=== PATIENT | female | born 1970 | race Caucasian/White ===

== ENCOUNTER → 2018-01-07 | Outpatient (CLI) | payer OTHER ==
[~2018-01-07] MED LIST: GADAVIST IV PRN
--- NOTE | 2018-01-07 09:38 | DIAGNOSTIC IMAGING REPORT ---
THORACIC SPINE COMBO CLINICAL HISTORY: 47 years-old Female presenting with G93.5 Chiari malformation, left arm numbness radiating to the fingers, concern for syrinx. TECHNIQUE: Multisequence, multiplanar MR imaging of the thoracic spine was performed before and after the administration of intravenous contrast. IV contrast: 7 mL of Gadavist. COMPARISON: None. FINDINGS: Localizer images: Unremarkable. Normal thoracic kyphosis. Slight levocurvature of the thoracic spine. Vertebral bodies maintain normal height, alignment, and bone marrow signal intensity. Intervertebral disc spaces preserved. No neural foraminal or spinal canal narrowing. The thoracic spinal cord maintains normal morphology and signal intensity. No kinking of the spinal cord or apparent displacement anteriorly or posteriorly. No evidence of a syrinx. No abnormal enhancements on postcontrast imaging. Normal appearance of the proximal cauda equina. Paraspinal soft tissues within normal limits. IMPRESSION: Essentially normal thoracic spine and thoracic spinal cord. No evidence of syrinx. No neural foraminal or spinal canal narrowing. Electronically signed by: Aguila Torres M.D. 01/07/2018 9:37 AM Dictated Date/Time: 01/07/2018 9:32 AM
--- NOTE | 2018-01-07 10:39 | DIAGNOSTIC IMAGING REPORT ---
MRI OF THE CERVICAL SPINE COMBO CLINICAL HISTORY: Chiari malformation. Left upper extremity numbness. COMPARISON STUDY: No priors. TECHNIQUE: MRI of the cervical spine is performed utilizing various T1 and T2 weighted sequences in the axial and sagittal planes. Contrast-enhanced sequences are acquired following the IV administration of 7 cc of Gadavist. FINDINGS: Cervical spine: Vertebral body height and alignment are maintained throughout the cervical spine. There is straightening of the cervical lordosis with mild reversal centered at C5-C6. The atlantodental articulation appears maintained. The spinous processes are intact. No destructive bony lesion is identified. Intervertebral discs: There is minimal degenerative disc desiccation. No significant loss of height is seen. Spinal cord: There is focal slitlike prominence of the central spinal canal seen at the level of C2. The cervical spinal cord is otherwise normal in morphology and signal intensity. No syrinx is identified. No abnormal enhancement is identified on the postcontrast sequences. C2-C3: Unremarkable. C3-C4: Unremarkable. C4-C5: A tiny posterior disc osteophyte complex minimally effaces the ventral subarachnoid space. The neural foramina are widely patent. C5-C6: A posterior disc osteophyte complex eccentric to the left effaces the ventral subarachnoid space. The neural foramina are widely patent. C6-C7: A posterior disc osteophyte complex abuts the ventral cord. The neural foramina are patent. C7-T1: Unremarkable. Soft tissues: A 7 mm nodule is noted in the left thyroid lobe. The prevertebral and paraspinous soft tissues are otherwise within normal limits. Brain parenchyma: There is evidence of a Chiari 1 malformation. The cerebellar tonsils project 1.7 cm below the foramen magnum. The partially imaged brain parenchyma is otherwise normal in appearance. IMPRESSION: 1. There is evidence of a Chiari 1 malformation. 2. There is minimal slitlike prominence of the central spinal canal at the level of C2. No syrinx is identified. 3. The cervical spinal cord is otherwise normal in morphology and signal intensity. No abnormal enhancement is identified. 4. Minimal spondylotic change as above. 5. There is a subcentimeter nodule in the left thyroid lobe. Consider follow-up with a dedicated thyroid ultrasound. Dictated: 01/07/2018 9:31 AM Transcribed: 01/07/2018 10:38 AM [email or web address] Electronically signed by: Ten Benavides M.D. 01/07/2018 10:55 AM Dictated Date/Time: 01/07/2018 9:31 AM
== END | disposition home or self-care (01) ==
LOC: C.MRI 07:20
PROVIDERS: ATTEND Psychiatry & Neurology Neurology
DX: G93.5 Compression of brain (principal); E04.1 Nontoxic single thyroid nodule

== ENCOUNTER → 2018-01-28 | Outpatient (CLI) | payer OTHER ==
--- NOTE | 2018-01-28 10:17 | DIAGNOSTIC IMAGING REPORT ---
CERVICAL FLEX/EXT CSF CLINICAL HISTORY: 47 years-old Female presenting with CHIARI MALFORMATION. TECHNIQUE: Multisequence, multiplanar MR imaging of the cervical spine was performed without the use of intravenous contrast. Flexion and extension views were obtained with dedicated sequences to evaluate CSF flow. IV contrast: None. COMPARISON: Cervical spine MR from 01/07/2018. FINDINGS: Localizer images: Unremarkable. Neutral positioning of the cervical spine demonstrates normal cervical lordosis. Vertebral bodies maintain normal height, alignment, and bone marrow signal intensity. Mild intervertebral disc desiccation noted diffusely in the cervical spine with small disc osteophyte complexes in the mid to lower cervical region, the most prominent at C6-7. At C6-7, there is resultant mild effacement of the anterior thecal sac. No spinal cord impingement. No significant neural foraminal narrowing. Dedicated flow imaging in the short position demonstrates expected passage of CSF anterior and posterior to the spinal cord. Trace CSF flow is evident posterior to the cerebellar tonsils and normal CSF flow evident ventral to the medulla. Incidental note again made of a Chiari 1 malformation with the cerebellar tonsils displaced downward 20 mm. On flexion positioning, no evidence of subluxation. Straightening of normal cervical lordosis but limited change from neutral positioning. Slight increase in effacement of the ventral thecal sac at the level of C6-7. However, dedicated flow imaging in flexion positioning does not demonstrate significant abnormality. No flow is evident posterior to the cerebellar tonsils. On extension positioning, expected exaggerated lordosis. A similar degree of effacement of the anterior thecal sac at C6-7 noted. Flow imaging demonstrates expected diminished CSF flow along the dorsum of the cervical cord. Additionally, no flow is evident along the ventral aspect of the medulla or dorsal aspect of the herniated cerebellar tonsils. IMPRESSION: 1. Chiari 1 malformation with downward displacement of the cerebellar tonsils of 20 mm. 2. Significantly diminished CSF flow at the craniocervical junction on extension positioning and slightly less severe diminished CSF flow on flexion positioning. Electronically signed by: Aguila Torres M.D. 01/28/2018 10:15 AM Dictated Date/Time: 01/28/2018 9:59 AM
== END | disposition home or self-care (01) ==
LOC: C.MRIBC 08:32
PROVIDERS: ATTEND Psychiatry & Neurology Neurology
DX: G93.5 Compression of brain (principal); G93.89 Other specified disorders of brain